=== PATIENT | male | born 1990 | race Hispanic/Latino ===

== ENCOUNTER 2022-07-13 09:57 | Emergency (ER) | payer OTHER ==
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
[2022-07-13] MEDS ORDERED: TDAP (DIPHTH,PERTUSS(ACELL),TET VAC) 0.5 ML VIAL IMVAC ONE (10:36)
[2022-07-13] MEDS ORDERED: SILVER SULFADIAZINE 1% 25 GM TOP ONE (10:37)
[2022-07-13 11:26] VITALS: BP 122/68; O2SAT 100
== END 2022-07-13 11:22 | disposition home or self-care (01) ==
LOC: ER 09:57
DX: T21.22XA Burn of second degree of abdominal wall, initial encounter (principal); T31.0 Burns involving less than 10% of body surface; X13.1XXA Other contact with steam and other hot vapors, initial encounter
CPT/HCPCS: 96372; 99283